=== PATIENT | female | born 1970 | race Caucasian/White ===

== ENCOUNTER 2016-07-17 07:58 | Emergency (ER) | payer BC ==
[2016-07-17 08:37] LABS: HEMOGLOBIN 14.6 gm/dl (12.3-15.3); RED BLOOD COUNT 5.27 M/UL (4.00-5.10); WHITE BLOOD COUNT 5.1 K/UL (4.5-11.0)
== END 2016-07-17 10:35 | disposition home or self-care (01) ==
LOC: ER1 07:58
PROVIDERS: Emergency Medicine
DX: J11.1 Influenza due to unidentified influenza virus with other respiratory manifestations (principal); J40 Bronchitis, not specified as acute or chronic; E11.9 Type 2 diabetes mellitus without complications; I10 Essential (primary) hypertension; Z90.49 Acquired absence of other specified parts of digestive tract
CPT/HCPCS: 36415; 71020; 80053; 82550; 82553; 83874; 84484; 85025; 93005; 99283

== ENCOUNTER 2020-10-15 12:21 | Emergency (ER) | payer BC ==
[~2020-10-15 12:21] MED LIST: BENTYL 20MG TAB20 MG PO; MACROBID 100 M100 MG PO; ZOFRAN ODT 4 MG4 MG PO
[2020-10-15 14:11] LABS: RED BLOOD COUNT 5.63 M/UL (4.00-5.10); WHITE BLOOD COUNT 5.5 K/UL (4.5-11.0)
[2020-10-15 14:37] LABS: BUN/CREATININE RATIO 17 (0-10)
[2020-10-15] MEDS ORDERED: MACROBID 100 M100 M1 PO (15:21)
[2020-10-15] MEDS ORDERED: CATAPRES 0.1MG0.1 MG PO (15:31)
== END 2020-10-15 15:50 | disposition home or self-care (01) ==
LOC: ER1 12:21
PROVIDERS: Physician Assistant
DX: I10 Essential (primary) hypertension (principal); E11.9 Type 2 diabetes mellitus without complications; N39.0 Urinary tract infection, site not specified; Z87.442 Personal history of urinary calculi; Z90.49 Acquired absence of other specified parts of digestive tract; Z88.1 Allergy status to other antibiotic agents; Z88.0 Allergy status to penicillin; Z88.2 Allergy status to sulfonamides; Z79.84 Long term (current) use of oral hypoglycemic drugs; Z79.899 Other long term (current) drug therapy; Z79.01 Long term (current) use of anticoagulants; Z20.822 Contact with and (suspected) exposure to COVID-19
CPT/HCPCS: 71045; 80053; 81001; 82550; 82553; 83874; 84484; 85025; 93005; 99284

== ENCOUNTER 2020-12-25 20:33 | Emergency (ER) | payer BC ==
[~2020-12-25 20:33] MED LIST changes: +CATAPRES 0.1MG0.1 MG PO; +MACROBID 100 M100 M1 PO
[2020-12-25] MEDS ORDERED: VISTARIL25 MG PO (21:36)
== END 2020-12-25 22:05 | disposition home or self-care (01) ==
LOC: ER1 20:33
DX: L25.5 Unspecified contact dermatitis due to plants, except food (principal); E11.9 Type 2 diabetes mellitus without complications; I10 Essential (primary) hypertension; Z88.0 Allergy status to penicillin; Z88.2 Allergy status to sulfonamides; Z88.1 Allergy status to other antibiotic agents; Z90.49 Acquired absence of other specified parts of digestive tract
CPT/HCPCS: 96372; 99282; J1100

== ENCOUNTER 2021-03-25 07:39 | Emergency (ER) | payer BC ==
[~2021-03-25 07:39] MED LIST changes: +VISTARIL25 MG PO
[2021-03-25 08:39] LABS: HEMOGLOBIN 14.7 gm/dl (12.3-15.3); RED BLOOD COUNT 5.14 M/UL (4.00-5.10); WHITE BLOOD COUNT 8.6 K/UL (4.5-11.0)
[2021-03-25 08:59] LABS: BUN/CREATININE RATIO 25 (0-10)
[2021-03-25] MEDS ORDERED: ZOFRAN ODT 4 MG4 MG PO (09:07)
[2021-03-25] MEDS ORDERED: MONODOX100 MG PO (09:07)
[2021-03-25] MEDS ORDERED: PYRIDIUM100 MG PO (09:07)
[2021-03-25] MEDS ORDERED: IBUPROFEN600 MG PO (09:07)
== END 2021-03-25 10:17 | disposition home or self-care (01) ==
LOC: ER1 07:39
PROVIDERS: Nurse Practitioner
DX: N39.0 Urinary tract infection, site not specified (principal); R51.9 Headache, unspecified; Z20.822 Contact with and (suspected) exposure to COVID-19; E11.9 Type 2 diabetes mellitus without complications; I10 Essential (primary) hypertension; Z90.49 Acquired absence of other specified parts of digestive tract; Z88.0 Allergy status to penicillin; Z88.2 Allergy status to sulfonamides; Z88.8 Allergy status to other drugs, medicaments and biological substances; Z79.82 Long term (current) use of aspirin
CPT/HCPCS: 80053; 81001; 82550; 82553; 83874; 84484; 85025; 87077; 87086; 87186; 96374; 96375; 99284; J0780; J1100; J1200; J2550; J7030; U0002